=== PATIENT | male | born 1975 | race Caucasian/White ===

== ENCOUNTER → 2017-06-11 | Outpatient (CLI) | payer BC ==
[2017-06-11 07:47] LABS: BASO % 0.8 % (0.0-1.0); EOS # 0.1 10^3/uL (0.0-0.50); EOS % 1.8 % (0.0-3.0); HEMATOCRIT 45.8 % (42.0-52.0); HEMOGLOBIN 16.1 g/dl (13.5-17.5); IMMATURE GRANULOCYTE % 0.2 % (0-3.0); MEAN CORPUSCULAR HEMOGLOBIN 29.8 pg (27.0-33.0); MEAN CORPUSCULAR HGB CONC 35.2 g/dl (32.0-36.5); MEAN CORPUSCULAR VOLUME 84.8 fl (80.0-96.0); MONO # 0.5 10^3/uL (0.0-0.8); MONO % 9.1 % (0.0-5.0); NEUTROPHILS # 2.4 10^3/uL (1.8-7.7); NEUTROPHILS % 48.1 % (36.0-66.0); PLATELET COUNT, AUTOMATED 249 10^3/uL (150-450); RED CELL DISTRIBUTION WIDTH 12.4 % (11.5-14.5)
[2017-06-11 08:27] LABS: ALBUMIN 3.7 GM/DL (3.2-5.2); ALBUMIN/GLOBULIN RATIO 1.09 (1.00-1.93); ALKALINE PHOSPHATASE 83 U/L (45-117); ALT/SGPT 27 U/L (12-78); ANION GAP 8 MEQ/L (8-16); AST/SGOT 18 U/L (7-37); BILIRUBIN,TOTAL 0.5 MG/DL (0.2-1.0); BLOOD UREA NITROGEN 14 MG/DL (7-18); CALCIUM LEVEL 8.4 MG/DL (8.5-10.1); CARBON DIOXIDE LEVEL 25 MEQ/L (21-32); CHLORIDE LEVEL 110 MEQ/L (98-107); CHOLESTEROL LEVEL 174 MG/DL (<200); CHOLESTEROL RISK RATIO 3.551 (<5); CREATININE FOR GFR 0.79 MG/DL (0.70-1.30); GLOMERULAR FILTRATION RATE > 60.0 (>60); GLUCOSE, FASTING 94 MG/DL (70-100); HDL CHOLESTEROL 49 MG/DL (>40); LDL CHOLESTEROL 109.2 MG/DL (<100); NON-HDL-C 125 MG/DL; SODIUM LEVEL 143 MEQ/L (136-145); TOTAL PROTEIN 7.1 GM/DL (6.4-8.2); TRIGLYCERIDES LEVEL 79 MG/DL (<150)
== END ==
LOC: M LAB 06:55
DX: Z00.00 Encounter for general adult medical examination without abnormal findings (principal)

== ENCOUNTER → 2017-06-12 | Outpatient (CLI) | payer BC | LOC: M RAD 06:42 | DX: M54.6 Pain in thoracic spine (principal); Z98.1 Arthrodesis status ==

== ENCOUNTER → 2018-04-26 | Outpatient (CLI) | payer BC ==
--- NOTE | 2018-04-26 18:53 | REP ---
LUMBAR SPINE, SIX VIEWS: HISTORY: Radiculopathy. There is no acute fracture or subluxation. The L4-5 intervertebral disc is decreased in height consistent with disc degeneration. The facet joints are normal in appearance. IMPRESSION:Degenerative change as described above. Electronically Signed by Aram Marquez MD 04/26/2018 06:58 P
== END ==
LOC: M WUC 17:26
PROVIDERS: ATTEND Physician Assistant
DX: M51.36 Other intervertebral disc degeneration, lumbar region (principal); M54.16 Radiculopathy, lumbar region

== ENCOUNTER 2018-06-04 06:40 | Day surgery (SDC) | payer BC ==
[~2018-06-04] VITALS: Ht 193 cm; Wt 93.0 kg
[~2018-06-04 06:40] MED LIST: CYCL10TA PO; PROT1TAB2 PO
[2018-06-04] MEDS ORDERED: SIMETHICONE 40MG/0.6ML DROPS 30ML As Ordered ONE (07:06)
[2018-06-04] MEDS ORDERED: LIDOCAINE 2% INJ 100 MG/5 ML SDV (FOR ANES.) As Ordered ONE (07:07)
[2018-06-04] MEDS ORDERED: PROPOFOL 500 MG/50 ML VIAL As Ordered ONE (07:07)
[2018-06-04] MEDS ORDERED: fentaNYL 100 MCG/2 ML INJECTION (J3010) As Ordered ONE (07:07)
[2018-06-04] MEDS ORDERED: PROPOFOL 200 MG/20 ML VIAL As Ordered ONE (07:07)
--- NOTE | 2018-06-04 07:45 | ROOR ---
Patient Name: Donell Pablo Procedure Date: 06/04/2018 7:31 AM Date of : 1975 Age: 42 Room: [facility] Gender: Male Note Status: Finalized Procedure: Upper GI endoscopy Indications: Heartburn Providers: Efrain MURCIA MD Referring MD: Daina Garcia MD Requesting Provider: Medicines: Monitored Anesthesia Care Complications: No immediate complications. Procedure: Pre-Anesthesia Assessment: - The heart rate, respiratory rate, oxygen saturations, blood pressure, adequacy of pulmonary ventilation, and response to care were monitored throughout the procedure. The Endoscope was introduced through the mouth, and advanced to the second part of duodenum. The upper GI endoscopy was accomplished without difficulty. The patient tolerated the procedure well. Findings: The esophagus was normal. The stomach was normal. The examined duodenum was normal. Impression: - Normal esophagus. - Normal stomach. - Normal examined duodenum. - No specimens collected. Recommendation: - Follow an antireflux regimen. - Continue present medications. Efrain Murcia MD Efrain MURCIA MD 06/04/2018 7:44:41 AM Electronically signed by Efrain MURCIA MD Number of Addenda: 0 Note Initiated On: 06/04/2018 7:31 AM Estimated Blood Loss: Estimated blood loss: none.
[2018-06-04] MEDS ORDERED: NS 1,000 ML IV SCH (08:00)
--- NOTE | 2018-06-04 08:04 | ROOR ---
Patient Name: Donell Pablo Procedure Date: 06/04/2018 7:32 AM Date of : 1975 Age: 42 Room: OP02 Gender: Male Note Status: Finalized Procedure: Colonoscopy Indications: Screening in patient at increased risk: Colorectal cancer in father before age 60 (age 40) Providers: Efrain MURCIA MD Referring MD: Daina Garcia MD Requesting Provider: Medicines: Monitored Anesthesia Care Complications: No immediate complications. Procedure: Pre-Anesthesia Assessment: - The heart rate, respiratory rate, oxygen saturations, blood pressure, adequacy of pulmonary ventilation, and response to care were monitored throughout the procedure. The Colonoscope was introduced through the anus and advanced to the terminal ileum, with identification of the appendiceal orifice and IC valve. The colonoscopy was performed without difficulty. The patient tolerated the procedure well. The quality of the bowel preparation was good. Findings: The perianal and digital rectal examinations were normal. Two sessile polyps were found in the sigmoid colon and appendiceal orifice. The polyps were 4 to 5 mm in size. These polyps were removed with a cold snare. Resection and retrieval were complete. The exam was otherwise without abnormality on direct and retroflexion views. Impression: - Two 4 to 5 mm polyps in the sigmoid colon and at the appendiceal orifice, removed with a cold snare. Resected and retrieved. - The examination was otherwise normal on direct and retroflexion views. Recommendation: - Await pathology results. - Telephone endoscopist for pathology results in 2 weeks. - If the pathology report reveals adenomatous tissue, then repeat the colonoscopy for surveillance in 3 years. - If the pathology report indicates hyperplastic polyp, then repeat colonoscopy for screening purposes in 5 years. Efrain Murcia MD Efrain MURCIA MD 06/04/2018 8:03:40 AM Electronically signed by Efrain MURCIA MD Number of Addenda: 0 Note Initiated On: 06/04/2018 7:32 AM Estimated Blood Loss: Estimated blood loss: none.
[2018-06-04 08:30] VITALS: BP 138/62
== END 2018-06-04 08:34 | disposition home or self-care (01) ==
LOC: M OPP 06:40
PROVIDERS: ATTEND Internal Medicine Gastroenterology
DX: D12.5 Benign neoplasm of sigmoid colon (principal); D12.0 Benign neoplasm of cecum; R19.4 Change in bowel habit; R12 Heartburn; Z87.891 Personal history of nicotine dependence; Z79.899 Other long term (current) drug therapy; Z88.5 Allergy status to narcotic agent
CPT/HCPCS: 43235; 45385; 88305; J3010

== ENCOUNTER → 2019-04-08 | Outpatient (RCR) | payer BC | LOC: M PT 04-06 09:13 | PROVIDERS: ATTEND Orthopaedic Surgery | DX: S83.241D Other tear of medial meniscus, current injury, right knee, subsequent encounter (principal) ==

== ENCOUNTER → 2019-10-07 | Outpatient (CLI) | payer BC ==
[~2019-10-07] MED LIST changes: +CYCL-707 PO; -CYCL10TA PO
== END ==
LOC: M LABSMTC 10:00
PROVIDERS: ATTEND Pediatrics
DX: Z11.59 Encounter for screening for other viral diseases (principal); Z20.828 Contact with and (suspected) exposure to other viral communicable diseases
CPT/HCPCS: C9803; U0002

== ENCOUNTER → 2020-01-16 | Outpatient (CLI) | payer SELFPAY | LOC: M LABSMTC 09:36 | PROVIDERS: ATTEND Pediatrics | DX: Z20.828 Contact with and (suspected) exposure to other viral communicable diseases (principal) ==

== ENCOUNTER → 2020-01-19 | Outpatient (CLI) | payer SELFPAY | LOC: M LABSMTC 09:26 | PROVIDERS: ATTEND Pediatrics | DX: Z20.828 Contact with and (suspected) exposure to other viral communicable diseases (principal) ==

== ENCOUNTER → 2020-01-22 | Outpatient (CLI) | payer SELFPAY | LOC: M LABSMTC 10:15 | PROVIDERS: ATTEND Pediatrics | DX: Z20.828 Contact with and (suspected) exposure to other viral communicable diseases (principal) ==

== ENCOUNTER → 2020-01-25 | Outpatient (CLI) | payer SELFPAY | LOC: M LABSMTC 09:41 | PROVIDERS: ATTEND Pediatrics | DX: Z20.828 Contact with and (suspected) exposure to other viral communicable diseases (principal) ==

== ENCOUNTER → 2020-01-28 | Outpatient (CLI) | payer SELFPAY | LOC: M LABSMTC 09:02 | PROVIDERS: ATTEND Pediatrics | DX: Z20.828 Contact with and (suspected) exposure to other viral communicable diseases (principal) ==

== ENCOUNTER → 2020-05-23 | Outpatient (CLI) | payer BC ==
--- NOTE | 2020-05-23 12:26 | REP ---
INDICATION: ARTHRODESIS STATUS, EVAL PSEUDOARTHROSIS CERVICAL. Patient is status post ventral discectomy and fusion plating C6-7. COMPARISON: Comparison radiographs are from August 16, 2013. Comparison MRI study cervical spine March 21, 2020.. TECHNIQUE: 22.0 mCi of technetium 99 M MDP is injected and standard 3 phase imaging of the head and neck region is acquired. FINDINGS: Anterior and posterior flow study is normal. Delayed images show normal uptake in the cervical spine the vertebral bodies on lateral projection image. There is very slightly asymmetric uptake in the C7-T1 facet joint region on the left greater than the right consistent with osteoarthritic facet disease. Incidental note is made of a tiny focus of increased uptake in the left frontal bone as an incidental finding. There is arthritic uptake in the acromioclavicular joints. Otherwise unremarkable. IMPRESSION: Mild arthritic uptake pattern seen. No abnormal uptake seen in the region of the cervical spine vertebral bodies. <Electronically signed by Jan Franz > 05/23/20 [id number]
== END ==
LOC: M RAD 08:11
PROVIDERS: ATTEND Orthopaedic Surgery
DX: Z98.1 Arthrodesis status (principal)
CPT/HCPCS: 78315; A9503

== ENCOUNTER → 2020-06-01 | Outpatient (CLI) | payer BC ==
--- NOTE | 2020-06-01 23:24 | ECWPNPC ---
PATIENT NAME: PARI HAMILTON : 1975 GENDER: MALE VISIT DATE: 06/01/2020 DISCHARGE DATE: 06/01/20 1049 VISIT LOCKED DATE TIME: PHYSICIAN: ROBB SNYDER MD RESOURCE: ROBB SNYDER MD REASON FOR APPOINTMENT 1. CERVICAL RADICULOPATHE,SPONDYLOSIS,DISC DEGENERATION HISTORY OF PRESENT ILLNESS DEPRESSION SCREENING: PHQ-2 (2015 EDITION) LITTLE INTEREST OR PLEASURE IN DOING THINGS?NOT AT ALL FEELING DOWN, DEPRESSED, OR HOPELESS?NOT AT ALL TOTAL SCORE0 GENERAL: 44-YEAR-OLD MALE PATIENT WITH A HISTORY OF CHRONIC RIGHT NECK PAIN. THE PATIENT DESCRIBES THE PAIN ACHING AND SEVERE WITH A PAIN SCORE RANGING FROM 6-9/10. THE PATIENT HAD A FUSION DONE 6 YEARS AGO AT [facility]. HE WAS DOING RELATIVITY WELL UNTIL ABOUT 6 MONTHS AGO WHEN HE STARTED HAVING SOME INCREASING PAIN. THE PATIENT WAS EVALUATED BY A SPINE SURGEON WHO IS CONSIDERING A SURGERY AND REFERRED THE PATIENT HERE TO DO SOME INTERVENTION. FALL RISK SCREENING: SCREENING : NO FALLS REPORTED IN THE LAST YEAR , : NO FALLS REPORTED IN THE LAST YEAR. PAIN SCREENING: PATIENT HAS A COMPLAINT OF ACUTE OR CHRONIC PAIN :YES LOCATION OF PAIN:NECK, BOTH SHOULDERS INTENSITY OF PAIN (SCALE OF 1 TO 10):6 WHAT DOES YOUR PAIN FEEL LIKE:ACHING, SHOOTING, OTHER PULLING SENSATION WHEN LIFTS DURATION:CONSTANT PAIN IS INCREASED BY:ACTIVITIES, OTHERS LIFTING, TURNING HEAD PAIN IS DECREASED BY:USE OF PAIN MEDICATIONS, OTHERS LYING DOWN NURSING NOTE: - - -. PAIN CENTER INTAKE QUESTIONS: DO YOU HAVE A HISTORY OF MRSA? :NO DO YOU TAKE A BLOOD THINNERS? :NO DO YOU HAVE ANY BLEEDING DISORDERS? :NO ANY NEW NUMBNESS OR WEAKNESS IN YOUR LEGS OR ARMS? :YES NUMBNESS RIGHT ARM SHOULDER TO ELBOW INTERMITTENT FOR PAST 3 MONTHS ANY PACEMAKER,DEFIBRILLATOR, OR DORSAL COLUMN STIMULATOR? :NO DO YOU HAVE ANY RASHES OR OPEN SORES? :NO ARE YOU ALLERGIC TO IV DYE? :NO ARE YOU DIABETIC? :NO ANY NEW PROBLEMS WITH YOUR MEDICATIONS? :NO HAVE YOU RECEIVED A VACCINE IN THE PAST 30 DAYS? :NO DO YOU PLAN TO RECEIVE A VACCINE IN THE NEXT 21 DAYS? :NO DO YOU NEED ANY PRESCRIPTION? :NO DO YOU TAKE ANY IMMUNOSUPPRESSIVE MEDICATIONS? :NO CURRENT MEDICATIONS TAKING GABAPENTIN 300 MG CAPSULE 1 CAPSULE ORALLY 3 TIMES A DAY MEDICATION LIST REVIEWED AND RECONCILED WITH THE PATIENT PAST MEDICAL HISTORY CRUSH INJURY TO NECK 2014 WITH HAIRLINE FRACTURE C6-C7 RIGHT KNEE TORN MENISCUS ALLERGIES MORPHINE IR: ITCHINESS - ALLERGY ENVIRONMENTAL: CONGESTION - ALLERGY SURGICAL HISTORY HERNIATED DISC WITH PLATES AND SCREWS ANTERIOR CERVICAL FUSION C6-C7 07/04/14 APPENDECTOMY 1996 T&A 1981 VASECTOMY 02/08/14 FAMILY HISTORY FATHER: 71 YRS, LUNG CANCER, PROSTATE CANCER, HEART DISEASE MOTHER: ALIVE, HEALTHY 1 BROTHER(S) - HEALTHY. 2 SON(S) , 3 DAUGHTER(S) - HEALTHY. NO KNOWN FAMILY HISTORY OF ANY UROLOGICALLY RELATED DISEASES/CANCERS. SOCIAL HISTORY GENERAL: TOBACCO USE ARE YOU A:: FORMER SMOKER , HOW LONG HAS IT BEEN SINCE YOU LAST SMOKED?: 5-10 YEARS. ALCOHOL SCREENING POINTS: 1, INTERPRETATION: NEGATIVE. RECREATIONAL DRUG USE DENIES. CAFFEINE 12 CUPS/DAY. SEXUAL HX HAD SEX IN THE LAST 12 MONTHS (VAGINAL, ORAL, OR ANAL)?: YES, WITH: WOMEN ONLY, HAVE YOU EVER HAD AN STD?: NO. HINDU NO LUTHERAN BELIEFS THAT WOULD IMPACT HEALTH CARE. LANGUAGE [place]. LEARNING BARRIERS / SPECIAL NEEDS BARRIERS TO LEARNING?NO HEARING IMPAIRED?NO VISION IMPAIRED?YES :CORRECTIVE LENSES COGNITIVELY IMPAIRED?NO READINESS TO LEARN?YES LEARNING PREFERENCES?NO LEARNING CAPABILITIES PRESENT?YES EMOTIONAL BARRIERS?NO SPECIAL DEVICES?NO BUZZSAW OPERATOR NEEDED?NO DOMESTIC VIOLENCE NONE. 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 DIET: REGULAR. EXERCISE: WALKS, BICYCLE. MARITAL STATUS: . HOSPITALIZATION/MAJOR DIAGNOSTIC PROCEDURE SURGICALY RELATED REVIEW OF SYSTEMS GLAUCOMA: NOTHYROID DISEASE: NOHYPERTENSION: NOHEART DISEASE: NOLUNG DISEASE: NODIABETES: NOGI DISEASE: NO LIVER DISEASE: NO KIDNEY DISEASE: NOSTERIOD USE: NONEUROLOGICAL DISEASE: NOBACK PROBLEMS: YES, PAINEXTREMITIES: YES, PAINGENITOURINARY: NOBLEEDING DISORDER: NOASA CLASS: IIAIRWAY CLASS: II. VITAL SIGNS WT 212 LBS, HT 6'3'', BMI 26.50 INDEX, BP 123/84 MM HG, HR 71 /MIN, RR 16 /MIN, TEMP 98.4 F, OXYGEN SAT % 99%, SAFE IN ENV? (Y/N) YES, NA INITIALS 06/01/20 1043 REVIEWED. Mahi DAVIS RN. EXAMINATION GENERAL EXAMINATION: THE PATIENT IS ALERT, ORIENTED TIMES THREE AND COOPERATIVE. LUNGS ARE CLEAR TO AUSCULTATION. HEART SHOWS REGULAR RHYTHM, NO MURMURS AND NO GALLOPS. HE CAN ROTATE HIS HEAD TO THE LEFT SIDE TO ABOUT 50 DEGREES WITHOUT DIFFICULTY. OVER THE RIGHT SIDE, HE HAS PAIN AND DIFFICULTY. WITH EXTENSION OF THE HEAD, TO 60 DEGREE, HE FEELS DISCOMFORT IN THE NECK AND SHOULDER. HE CAN FLEX TO 55 DEGREES WITH TENSION IN THE BACK OF THE NECK. WITH ABDUCTION OF THE UPPER EXTREMITIES AND PUTTING HIS HANDS OVER HIS HEAD, AGAIN PAIN OVER THE RIGHT SHOULDER AND RIGHT NECK AREA. WITH EXTENSION AND LATERAL ROTATION WITH LOADING OVER THE FACET JOINTS, THERE IS TENDERNESS OVER BOTH SIDES. LATERAL TO THE RIGHT ELBOW, THERE IS SOME NUMBNESS. THERE IS SOME DIFFERENCE TO SENSATION OVER RIGHT NECK, RIGHT SHOULDER AND LATERAL TO THE RIGHT ELBOW, FOLLOWING THE DISTRIBUTION OF C4 AND C5. THERE IS TENDERNESS WHEN I PUT PRESSURE OVER THE FACET AT C4-C5, C5-C6. MRI OF THE CERVICAL SPINE DATED 03/21/2020 SHOWS SOME FACET ARTHROPATHY CHANGES, CERVICAL FUSION AT C6-C7, SOME SMALL CENTRAL DISC PROTRUSION AT C5-C6. ASSESSMENTS CERVICAL SPONDYLOSIS - M47.812 (PRIMARY) FACET ARTHROPATHY, CERVICAL - M47.812 CERVICAL VERTEBRAL FUSION - M43.22, C6-C7 CERVICAL POST-LAMINECTOMY SYNDROME - M96.1 CERVICAL RADICULOPATHY - M54.12 TREATMENT CERVICAL SPONDYLOSIS IV LACTATED RINGER'S AT KVO (ORDERED FOR 07/02/2020) OXYGEN AT 2 LITERS PER NASAL CANNULA (ORDERED FOR 07/02/2020) MEDICATION: FENTANYL CITRATE 50MCG IV (ORDERED FOR 07/02/2020) MED: VERSED 1MG IV MIDAZOLAM (ORDERED FOR 07/02/2020) CLINICAL NOTES: I DISCUSSED ALTERNATIVES WITH MR. HAMILTON. WE AGREE ON DOING A RIGHT THERAPEUTIC CERVICAL FACET BLOCK C3-C4, C4-C5, C5-C6, C6-C7 WITH IV SEDATION DUE TO ANXIETY AND DISCOMFORT ASSOCIATED WITH THE PROCEDURE. THE PATIENT REPORTS UNDERSTANDING AND AGREES WITH THE PLAN. I, OLIVIER VILLALOBOS, DOCUMENTED THE ABOVE INFORMATION ACTING A SCRIBE FOR DR. SNYDER. I HAVE REVIEWED THE ABOVE DOCUMENT, WRITTEN BY OLIVIER VILLALOBOS, GLOBAL COMPENSATION MANAGER, AND I VERIFY THAT IT IS ACCURATE. PROCEDURE CODES FA211 ESTABILISHED PATIENT [facility] CHARGE [id number] OFFICE/OUTPATIENT VISIT EST DISPOSITION & COMMUNICATION FOLLOW UP DOES NOT NEED PRESEDATE APPOINTMENT (REASON: REQUEST AUTH FOR RIGHT THERAPEUTIC CERVICAL FACET BLOCK C3-C4, C4-C5, C5-C6, C6-C7 WITH IV SEDATION, DOES NOT NEED PRESEDATE APPOINTMENT ) ELECTRONICALLY SIGNED BY ROBB SNYDER MD, MD ON 06/01/2020 AT 03:36 PM EDT DISCLAIMER : THIS IS A VISIT SUMMARY EXTRACTED FROM THE [facility] CHART. IT IS NOT A COPY OF THE [facility] PROGRESS NOTE. MTDD
== END ==
LOC: M PAIN 10:00
PROVIDERS: ATTEND Anesthesiology
DX: M47.22 Other spondylosis with radiculopathy, cervical region (principal); M96.1 Postlaminectomy syndrome, not elsewhere classified; Z98.1 Arthrodesis status; Z79.899 Other long term (current) drug therapy; Z88.5 Allergy status to narcotic agent

== ENCOUNTER → 2020-06-02 | Outpatient (CLI) | payer BC | LOC: M LABSMTC 09:28 | PROVIDERS: ATTEND Anesthesiology | DX: Z11.52 Encounter for screening for COVID-19 (principal) ==

== ENCOUNTER → 2020-06-07 | Outpatient (CLI) | payer BC ==
[~2020-06-07] MED LIST changes: +BUPIVACAINE HCL 0.25% 30ML VIAL As Ordered ONE; +ISOVUE-M 300 61% 15ML VIAL As Ordered ONE; +LIDOCAINE 1% SDV 30ML VIAL As Ordered ONE; +MIDAZOLAM INJ 2MG/2ML VIAL (J2250 PER 1MG) As Ordered ONE; +TRIAMCINOLONE ACETONIDE SUSP 40 MG/ML VIAL (J3301) As Ordered ONE; +diazePAM 2 MG TAB As Ordered ONE; +diazePAM 5MG TABLET As Ordered ONE; +fentaNYL 100 MCG/2 ML INJECTION (J3010) As Ordered ONE
--- NOTE | 2020-06-07 13:42 | REP ---
INDICATION: RIGHT THERAPEUTIC CERVICAL FACET BLOCK. COMPARISON: X-RAY 08/16/2013. TECHNIQUE: SIX IMAGES FROM C-ARM FLUOROSCOPY PROVIDED TO THE PAIN CLINIC FINDINGS: Lateral views including the C2 as well as the lower cervical spine with a C6-7 plate and screw fixation from prior discectomy and fusion. [place] are at the C4-5 and C5-6 level on these lateral images. IMPRESSION: Status post cervical facet injection. Fluoroscopic time: 65.5 seconds. <Electronically signed by Mustapha Johnson > 06/07/20 4789
--- NOTE | 2020-06-07 23:48 | ECWPNPC ---
PATIENT NAME: PARI HAMILTON : 1975 GENDER: MALE VISIT DATE: 06/07/2020 DISCHARGE DATE: 06/07/20 1409 VISIT LOCKED DATE TIME: PHYSICIAN: ROBB SNYDER MD RESOURCE: ROBB SNYDER MD REASON FOR APPOINTMENT 1. RIGHT THERAPEUTIC CERVICAL FACET BLOCK C4-C5, C5-C6 HISTORY OF PRESENT ILLNESS GENERAL: -. FALL RISK SCREENING: SCREENING : NO FALLS REPORTED IN THE LAST YEAR. PAIN SCREENING: PATIENT HAS A COMPLAINT OF ACUTE OR CHRONIC PAIN :YES LOCATION OF PAIN:NECK, LEFT SHOULDER, RIGHT SHOULDER INTENSITY OF PAIN (SCALE OF 1 TO 10):8 WHAT DOES YOUR PAIN FEEL LIKE:ACHING, CONTINOUS, THROBBING DURATION:CONTINOUS PAIN IS INCREASED BY:ACTIVITIES, OTHERS HEAVY LIFTING PAIN IS DECREASED BY:USE OF PAIN MEDICATIONS, OTHERS GABAPENTIN, HEAT NURSING NOTE: -. PAIN CENTER INTAKE QUESTIONS: DO YOU HAVE A HISTORY OF MRSA? :NO DO YOU TAKE A BLOOD THINNERS? :NO DO YOU HAVE ANY BLEEDING DISORDERS? :NO ANY NEW NUMBNESS OR WEAKNESS IN YOUR LEGS OR ARMS? :YES NUMBNESS RADIATING DOWN RIGHT ARM ANY PACEMAKER,DEFIBRILLATOR, OR DORSAL COLUMN STIMULATOR? :NO DO YOU HAVE ANY RASHES OR OPEN SORES? :NO ARE YOU ALLERGIC TO IV DYE? :NO ARE YOU DIABETIC? :NO ANY NEW PROBLEMS WITH YOUR MEDICATIONS? :NO HAVE YOU RECEIVED A VACCINE IN THE PAST 30 DAYS? :NO 2ND DOSE COVID VACCINE 04/02/2020 DO YOU PLAN TO RECEIVE A VACCINE IN THE NEXT 21 DAYS? :NO DO YOU TAKE ANY IMMUNOSUPPRESSIVE MEDICATIONS? :NO ANY HISTORY OF SEIZURES? :NO ANY HISTORY OF CARDIAC ISSUES OR EVENTS? :NO DO YOU HAVE ANY KIDNEY OR LIVER DISEASE? :NO DO YOU HAVE SLEEP APNEA? :NO ANY RECENT HEAD INJURY? :NO DO YOU HAVE ANY NEW INFECTIONS? :NO IS THERE A CHANCE YOU COULD BE ? :NO ARE YOU BREAST FEEDING? :NO WHEN DID YOU LAST EAT? : 06/06/20 1800 WHEN DID YOU LAST DRINK? : 0930 WHAT DID YOU LAST DRINK? : BLACK COFFEE NAME OF PERSON DRIVING YOU HOME? : DYANA DO YOU HAVE ANY OTHER QUESTIONS OR CONCERNS? : NO CURRENT MEDICATIONS TAKING GABAPENTIN 300 MG CAPSULE 1 CAPSULE ORALLY 3 TIMES A DAY, NOTES: 06/06/20 TAKING OMEPRAZOLE 20 MG CAPSULE DELAYED RELEASE 1 CAPSULE 30 MINUTES BEFORE MORNING MEAL ORALLY ONCE A DAY TAKING ZYRTEC ALLERGY 10 MG TABLET 1 TABLET ORALLY ONCE A DAY, NOTES: PRN MEDICATION LIST REVIEWED AND RECONCILED WITH THE PATIENT PAST MEDICAL HISTORY CRUSH INJURY TO NECK 2014 WITH HAIRLINE FRACTURE C6-C7 RIGHT KNEE TORN MENISCUS ALLERGIES MORPHINE IR: ITCHINESS - ALLERGY ENVIRONMENTAL: CONGESTION - ALLERGY SOCIAL HISTORY GENERAL: TOBACCO USE ARE YOU A:: FORMER SMOKER , HOW LONG HAS IT BEEN SINCE YOU LAST SMOKED?: 5-10 YEARS. LATEX QUESTIONNAIRE LATEX ALLERGY : HAVE YOU EVER DEVELOPED ANY TYPE OF REACTION AFTER HANDLING LATEX PRODUCTS SUCH RUBBER GLOVES, CONDOMS, DIAPHRAGMS, BALLOONS, SOCKS, OR UNDERWEAR?NO LATEX ALLERGY : HAVE YOU EVER DEVELOPED ANY TYPE OF REACTION DURING OR AFTER DENTAL APPOINTMENT, VAGINAL/RECTAL EXAMINATION, SURGICAL PROCEDURE, OR ANY OTHER EXPOSURE?NO LATEX RISK : HAVE YOU EVER HAD ANY DIFFICULTY BREATHING OR HIVES AFTER EATING OR HANDLING ANY FRUITS, OR VEGETABLES; SUCH KIWI, BANANAS, STONE FRUITS, OR CHESTNUTSNO LATEX RISK : DO YOU HAVE A PREVIOUS PERSONAL HISTORY OF MORE THAN NINE SURGERIES, SPINA BIFIDA, OR REPEATED CATHERIZATIONS? NO LATEX RISK : ARE YOU FREQUENTLY EXPOSED TO LATEX PRODUCTS IN YOUR OCCUPATION?YES DATE ASKED : 06/06/2020 ALCOHOL USE: YES- SOCIALLY. ALCOHOL SCREENING POINTS: 1, INTERPRETATION: NEGATIVE. RECREATIONAL DRUG USE DENIES. CAFFEINE 12 CUPS/DAY. SEXUAL HX HAD SEX IN THE LAST 12 MONTHS (VAGINAL, ORAL, OR ANAL)?: YES, WITH: WOMEN ONLY, HAVE YOU EVER HAD AN STD?: NO. ADVENTISM NO PENTECOSTAL BELIEFS THAT WOULD IMPACT HEALTH CARE. LANGUAGE YI. LEARNING BARRIERS / SPECIAL NEEDS BARRIERS TO LEARNING?NO HEARING IMPAIRED?NO VISION IMPAIRED?YES COGNITIVELY IMPAIRED?NO :CORRECTIVE LENSES READINESS TO LEARN?YES LEARNING PREFERENCES?NO LEARNING CAPABILITIES PRESENT?YES EMOTIONAL BARRIERS?NO SPECIAL DEVICES?NO INSTRUMENT TECH NEEDED?NO DOMESTIC VIOLENCE DO YOU FEEL SAFE IN YOUR ENVIRONMENT?YES OCCUPATION: [employer]. DIET: REGULAR. EXERCISE: WALKS, BICYCLE. MARITAL STATUS: . VITAL SIGNS WT 215.6 LBS, HT 6'3'', BMI 26.95 INDEX, BP 137/81 MM HG, HR 66 /MIN, RR 18 /MIN, TEMP 97.5 F, OXYGEN SAT % 97%, SAFE IN ENV? (Y/N) YES, NA INITIALS AW 1131, REVIEWED BY: Jose LAM RN. EXAMINATION GENERAL EXAMINATION: A HISTORY AND PHYSICAL EXAM ON THE PATIENT WAS DONE ON 06/01/2020 (DATE OF ORIGINAL ASSESSMENT) IN PREPARATION OF SURGERY/PROCEDURE. I HAVE NOW REASSESSED THIS PATIENT'S HEALTH STATUS AND PERFORMED AN UPDATED EXAM TODAY. ALL CHANGES IN THE PATIENT'S HISTORY, PHYSICAL EXAM, PRE-EXISTING CONDITONS, AND INDICATIONS/CONTRAINDICATIONS TO THE PLANNED PROCEDURE AND ANESTHESIA ARE DOCUMENTED AND EVALUATED BELOW. I ATTEST TO THE ADEQUACY AND APPROPRIATENESS OF MY ASSESSMENT, AND CONFIRM THE NECESSITY FOR THE PLANNED PROCEDURE. THE PATIENT IS ALERT, ORIENTED TIMES THREE AND COOPERATIVE. LUNGS ARE CLEAR TO AUSCULTATION. HEART SHOWS REGULAR RHYTHM, NO MURMURS AND NO GALLOPS. ASSESSMENTS CERVICAL SPONDYLOSIS - M47.812 (PRIMARY) TREATMENT CERVICAL SPONDYLOSIS SMC FACET BLOCK (PAIN)[id number] MEDICATION: VALIUM TAB 2MG ORALLY (DIAZEPAM)YUSEF LARA 06/07/2020 11:34:04 AM > VERIFIED SETH LAM 06/07/2020 11:35:05 AM > ADMINISTERED. OLIVIER VILLALOBOS 06/07/2020 11:57:02 AM - SECOND DOSE ORDERED, VERIFIED WITH AGUSTIN COLBERT 06/07/2020 12:03:40 PM > VERIFIED SETH LAM 06/07/2020 12:05:10 PM > ADMINISTERED. MEDICATION: VALIUM TAB 5MG ORALLY (DIAZEPAM)AGUSTIN BERNAL 06/07/2020 12:06:20 PM > VERIFIED SETH LAM 06/07/2020 12:06:51 PM > ADMINISTERED. COMPLETION OF PROCEDURAL VISIT WHEN MEETS CRITERIASETH LAM 06/07/2020 2:08:31 PM > CRITERIA MET. MED: VERSED 1MG IV MIDAZOLAMSETH LAM 06/07/2020 12:39:24 PM > VERIFIED. AGUSTIN BERNAL 06/07/2020 1:42:12 PM > FIRST DOSE GIVEN AT 1253, SECOND DOSE GIVEN AT 1257, THIRD DOSE GIVEN AT 1300. TOTAL GIVEN 3MG SETH LAM 06/07/2020 3:23:51 PM > VERBAL MEDICATION ORDERS PERFORMED DUE TO SCRIBE NOT BEING IN THE ROOM DURING THE PROCEDURE. THIS PROCEDURE WAS REVIEWED BY SETH LAM ON 06/07/2020 AT 15:23 PM EDT MEDICATION: FENTANYL CITRATE 50MCG IV SETH LAM 06/07/2020 12:39:41 PM > VERIFIED. AGUSTIN BERNAL 06/07/2020 1:42:55 PM > FIRST DOSE GIVEN AT 1311, SECOND DOSE GIVEN AT 1313, THIRD DOSE GIVEN AT 1315. TOTAL GIVEN 150MCG SETH LAM 06/07/2020 3:23:30 PM > VERBAL MEDICATION ORDERS PERFORMED DUE TO SCRIBE NOT BEING IN THE ROOM DURING THE PROCEDURE. THIS PROCEDURE WAS REVIEWED BY SETH LAM ON 06/07/2020 AT 15:23 PM EDT OXYGEN AT 2 LITERS PER NASAL CANNULASETH LAM 06/07/2020 12:42:00 PM > O2 ON AT 1241. SETH LAM 06/07/2020 1:24:31 PM > O2 OFF AT 1324. IV LACTATED RINGER'S AT KVSETH OLVERA 06/07/2020 11:53:18 AM > 22 GAUGE INSERTED IN LEFT HAND ON 1ST ATTEMPT. SITE CLEAR, FLUSHING WITHOUT DIFFICULTY. LR STARTED AT KVO PER ORDER. SETH LAM 06/07/2020 1:32:48 PM > TOTAL LR INFUSED 350 ML. SETH LAM 06/07/2020 1:55:44 PM > SL REMOVED, CATHERTER TIP INTACT, SITE CLEAR. OTHERS NOTES: 06/06/2020 1527 PRE PROCEDURE PHONE CALL COMPLETED WITH PATIENT Aneudy PATINO RN. PROCEDURES PAIN NURSING RECORD PROCEDURE IN ROOM 1240, PHYSICIAN IN ROOM 1249, START 1317, FINISH 1322, PHYSICIAN OUT OF ROOM 1324, OUT OF ROOM 1333, ECG NORMAL SINUS, PATIENT SHIELDED YES, SAFETY STRAP YES, PREP CHLOROPREP DR. SNYDER, DRESSING TEGADERM DR. SNYDER LOC: SETH LAM 06/07/2020 1:18:07 PM > , 1. ALERT, ORIENTED RESP: SETH LAM 06/07/2020 1:18:10 PM > , 1. REGULAR, NO DYSPNEA COLOR: SETH LAM 06/07/2020 1:18:13 PM > , 1. PINK SKIN: SETH LAM 06/07/2020 1:18:17 PM > , 1. WARM, DRY POSITION: SETH LAM 06/07/2020 1:18:21 PM > , 3. LATERAL VITALS: SETH LAM 06/07/2020 12:46:15 PM > 115/55, 62, 18, 98% SYLSETH TOBIN L 06/07/2020 12:57:00 PM > 123/55, 64, 18, 100% SYLSETH TOBIN L 06/07/2020 1:02:51 PM > 120/58, 67, 16, 100% SYLVER,SETH L 06/07/2020 1:06:54 PM > 117/59, 67, 16, 100% SYLVER,SETH L 06/07/2020 1:11:54 PM > 116/59, 65, 16, 100% SYLSETH TOBIN L 06/07/2020 1:16:48 PM > 114/61, 63, 16, 99% SYLSETH TOBIN L 06/07/2020 1:22:00 PM > 122/60, 60, 16, 97% SYLSETH TOBIN L 06/07/2020 1:23:12 PM > 116/65, 58, 18, 97% SYLSETH TOBIN L 06/07/2020 1:43:17 PM > 132/73, 57, 18, 97% NOTES SETH LAM 06/07/2020 2:15:07 PM > CARDIAC STRIP NOT PRINTED. PATIENT REMAINED SINUS RHYTHM THROUGHOUT PROCEDURE. COMPLETION OF PROCEDURE APPOINTMENT: POST PAIN 4, DRESSING SITE DRY AND INTACT, IV DISCONTINUED, SITE CLEAR, CATHETER INTACT, GAIT STEADY, TEACHING COMPLETED, PATIENT ACKNOWLEDGES UNDERSTANDING YES, PROCEDURE APPOINTMENT COMPLETED AT 1408 BY: Jose LAM RN PN CERVICAL FACET BLOCK LOW BILATERAL CERVICAL PRE PROCEDURE DIAGNOSIS CERVICAL SPONDYLOSIS POST PROCEDURE DIAGNOSIS CERVICAL SPONDYLOSIS PROCEDURE RIGHT C4-C5 AND RIGHT C5-C6 THERAPEUTIC CERVICAL FACET BLOCK SURGEON DR. ROBB SNYDER BOBBIN WINDER TENDER NONE ANESTHESIA LOCAL WITH IV SEDATION PRE PROCEDURE NOTE THE PATIENT HAS HISTORY OF CHRONIC CERVICAL PAIN. I EVALUATED THE PATIENT AND REVIEWED THE CHART. I WENT OVER THE RISKS, ALTERNATIVES, AND BENEFITS ASSOCIATED WITH THIS PROCEDURE. THE PATIENT WOULD LIKE TO PROCEED AND GIVE CONSENT TO PERFORMED THE PROCEDURE. THE PATIENT WOULD LIKE TO MOVE FORWARD WITH IV SEDATION DUE TO ANXIETY AND DISCOMFORT ASSOCIATED WITH THE PROCEDURE. THE PATIENT DENIES UNEXPLAINABLE WEIGHT LOSS, FEVER, CHILLS, OR NEW CHANGES IN URINARY OR BOWEL CONTROL. THE PATIENT IS COVID-19 NEGATIVE DESCRIPTION OF PROCEDURE THE PATIENT WAS BROUGHT TO THE PROCEDURE ROOM AND PLACED IN THE LEFT LATERAL DECUBITUS POSITION. THE CERVICOTHORACIC AREA WAS CLEANED WITH CHLORAPREP SOLUTION AND DRAPED ASEPTICALLY. THE PROCEDURE WAS DONE UNDER STERILE CONDITIONS. A TIMEOUT WAS PERFORMED WHERE THE CONSENTED SITE WAS VERIFIED WITH EVERYONE IN THE ROOM. UNDER FLUOROSCOPIC GUIDANCE, TARGET POINT WAS SELECTED AT THE RIGHT C4-C5 AND RIGHT C5-C6 CERVICAL FACET JOINT. TARGET POINTS WERE SELECTED AFTER LATERAL ROTATION AND TILT OF THE MAGNIFIER OF THE C-ARM. I CONFIRMED AGAIN THE SITE OF TARGET. LIDOCAINE 0.5% WAS USED TO NUMB THE SKIN AND THE SUBCUTANEOUS TISSUE BELOW IT. SPINAL NEEDLES, 22-GAUGE, WERE ADVANCED UNDER FLUOROSCOPIC GUIDANCE AND FOLLOWING PATIENT FEEDBACK UNTIL THE TARGETS WERE TOUCHED. THE POSITION OF THE NEEDLES WAS VERIFIED WITH AP AND LATERAL VIEWS. AFTER PROPER POSITION OF THE NEEDLES WAS ACHIEVED, ISOVUE-M DYE 30%, 0.1 ML, WAS INJECTED SHOWING SPREAD OF THE DYE. KENALOG 10 MG WAS INJECTED AT EACH SITE. THEN A SOLUTION OF 6 ML OF BUPIVACAINE 0.125% WAS USED TO FLUSH EACH SITE. THE MEDICATIONS WERE VERIFIED WITH THE NURSE. THERE WAS NO EVIDENCE OF BLOOD, PARESTHESIA OR CEREBROSPINAL FLUID DURING THE PROCEDURE. THE PATIENT WAS SENT TO THE RECOVERY ROOM. THE PATIENT WAS MOVING THE EXTREMITIES AND DOING WELL. THERE WERE NO COMPLICATIONS DURING THE PROCEDURE. ESTIMATED BLOOD LOSS WAS LESS THAN 5 ML. FLUOROSCOPY TIME WAS 1 MINUTE 5 SECONDS. THE PATIENT RECEIVED VERSED 3 MG AND FENTANYL 150 MCG IV IN DIVIDED DOSES. FACE TO FACE START TIME: 1253 FACE TO FACE END TIME: 1324 TOTAL FACE TO FACE TIME: 31 MINUTES POST PROCEDURE NOTE THE PATIENT WILL BE SEEN IN A FOLLOW UP IN THE NEXT FEW WEEKS. I AM LOOKING FOR LONG LASTING RELIEF FOR THE PATIENT WITH THIS INTERVENTION. INSTRUCTIONS WERE GIVEN, QUESTIONS WERE ANSWERED, AND THE PATIENT EXPRESSED UNDERSTANDING AND AGREES WITH THE PLAN. I, OLIVIER VILLALOBOS, DOCUMENTED THE ABOVE INFORMATION ACTING A SCRIBE FOR DR. SNYDER. I HAVE REVIEWED THE ABOVE DOCUMENT, WRITTEN BY OLIVIER VILLALOBOS, WAREHOUSE HELPER, AND I VERIFY THAT IT IS ACCURATE PROCEDURE CODES 47881 INJ PARAVERT F JNT C/T 1 LEV, MODIFIERS: [place] [address] INJ PARAVERT F JNT C/T 2 LEV, [place]: [place] [address] MOD SED SAME PHYS/QHP 5/>YRS 27310 MOD SED SAME PHYS/QHP EA DISPOSITION & COMMUNICATION FOLLOW UP FOLLOW UP WITH STEEL PLATE PRINTER (REASON: POST RIGHT THERAPEUTIC CERVICAL FACET BLOCK C4-C5, C5-C6) ELECTRONICALLY SIGNED BY ROBB SNYDER MD, MD ON 06/07/2020 AT 03:21 PM EDT DISCLAIMER : THIS IS A VISIT SUMMARY EXTRACTED FROM THE [facility] CHART. IT IS NOT A COPY OF THE [facility] PROGRESS NOTE. MTDD
== END ==
LOC: M PAIN 12:30
PROVIDERS: ATTEND Anesthesiology
DX: M47.812 Spondylosis without myelopathy or radiculopathy, cervical region (principal); Z87.891 Personal history of nicotine dependence; Z88.5 Allergy status to narcotic agent; Z79.899 Other long term (current) drug therapy
CPT/HCPCS: 64490; 64491; 99152; 99153; J2250; J3010; J3301; Q9967

== ENCOUNTER → 2020-06-21 | Outpatient (REF) | payer BC ==
[~2020-06-21] MED LIST changes: -BUPIVACAINE HCL 0.25% 30ML VIAL As Ordered ONE; -ISOVUE-M 300 61% 15ML VIAL As Ordered ONE; -LIDOCAINE 1% SDV 30ML VIAL As Ordered ONE; -MIDAZOLAM INJ 2MG/2ML VIAL (J2250 PER 1MG) As Ordered ONE; -TRIAMCINOLONE ACETONIDE SUSP 40 MG/ML VIAL (J3301) As Ordered ONE; -diazePAM 2 MG TAB As Ordered ONE; -diazePAM 5MG TABLET As Ordered ONE; -fentaNYL 100 MCG/2 ML INJECTION (J3010) As Ordered ONE
== END ==
LOC: M LAB REF 11:54
PROVIDERS: ATTEND Physician Assistant
DX: J02.9 Acute pharyngitis, unspecified (principal); R50.9 Fever, unspecified

== ENCOUNTER → 2020-07-30 | Outpatient (CLI) | payer BC ==
--- NOTE | 2020-07-30 08:36 | REPVR ---
PROCEDURE INFORMATION: Exam: CT Cervical Spine Without Contrast Exam date and time: 07/30/2020 8:05 AM Age: 44 years old Clinical indication: Radicular pain (radiculopathy); Cervical region; Prior surgery; Surgery date: 6+ months; Additional info: Radiculopathy, cervical region TECHNIQUE: Imaging protocol: Computed tomography images of the cervical spine without contrast. Radiation optimization: All CT scans at this facility use at least one of these dose optimization techniques: automated exposure control; mA and/or kV adjustment per patient size (includes targeted exams where dose is matched to clinical indication); or iterative reconstruction. COMPARISON: MRI C-SPINE W/O CONTRAST - OUTSIDE PRIOR 03/21/2020 8:10 AM FINDINGS: Bones/joints: Straightening of lordosis may be positional or related to muscular spasm, and unchanged from prior examination. Correlate clinically. No acute fracture. There is anterior plate and screw fusion with unilateral right paramedian screws. There is lucency surrounding the C6 screw which could indicate loosening. Hardware appears intact. There is no fusion across the disc space. There is disc height loss. Again seen is stable [id number] right neural foraminal narrowing. There is posterior mild disc osteophyte complex without evidence of significant spinal stenosis. Other levels show no spinal stenosis or neural foraminal narrowing or significant disc osteophyte complex. Discs/Spinal canal/Neural foramina: See "Bones/joints" finding. Lungs: Small apical subpleural blebs noted with mild apical pleuroparenchymal scarring. Soft tissues: Unremarkable. IMPRESSION: C6-C7 fusion with lucency surrounding the right paramedian C6 screw. Stable degenerative changes C6-C7. Electronically signed by: Daina Metcalf On 07/30/2020 08:36:16 AM
== END ==
LOC: M RAD 07:45
PROVIDERS: ATTEND Orthopaedic Surgery
DX: M43.22 Fusion of spine, cervical region (principal); M54.12 Radiculopathy, cervical region

== ENCOUNTER → 2020-10-11 | Outpatient (CLI) | payer BC ==
--- NOTE | 2020-10-11 13:30 | REP ---
INDICATION: RT SCROTAL MASS. COMPARISON: None. TECHNIQUE: Multiple ultrasonographic images of the scrotum including Doppler ultrasound FINDINGS: The right testis measures 5.4 x 2.6 x 3.1 cm. The left testis measures 4.9 x 2.8 x 3.3 cm. The testes are normal size. There are no testicular masses or cysts. A few microcalcifications are identified in both right and left testes. Therefore, periodic test testicular ultrasound surveillance might be considered to evaluate for neoplasm. The right epididymal head measures 9.0 mm and left epididymal head measures 8.4 mm. The palpable lump on the right corresponds to the right epididymal head. There is a right inguinal hernia containing peritoneal fat but no bowel. This hernia is almost completely reducible with transducer pressure. There is vascular flow in both testes. The Doppler resistive index in the parenchymal arteries of the right testis is 0.59 left testis 0.62. IMPRESSION: There are no testicular masses or scrotal masses otherwise. The the palpable lump on the right corresponds to the right epididymal head. There is a right inguinal hernia containing peritoneal fat but no bowel. The hernia is almost completely reducible with transducer pressure. There are few microcalcifications in each testis, therefore, periodic testicular ultrasound surveillance might be considered <Electronically signed by Juve Knight > 10/11/20 [id number]
== END ==
LOC: M RAD 12:35
PROVIDERS: ATTEND Urology
DX: N50.9 Disorder of male genital organs, unspecified (principal); K40.90 Unilateral inguinal hernia, without obstruction or gangrene, not specified as recurrent

== ENCOUNTER → 2020-11-01 | Outpatient (CLI) | payer BC ==
[~2020-11-01] MED LIST changes: +CETI10CA2 PO; +GABA-283; +OMEP20.6 PO
== END ==
LOC: M LABSMTC 09:43
PROVIDERS: ATTEND Anesthesiology
DX: Z01.812 Encounter for preprocedural laboratory examination (principal); Z11.52 Encounter for screening for COVID-19

== ENCOUNTER 2020-11-06 06:06 | Day surgery (SDC) | payer BC ==
[~2020-11-06] VITALS: Ht 190.5 cm; Wt 98.9 kg
[~2020-11-06 06:06] MED LIST changes: +LIDOCAINE 1% MDV 20ML VIAL SQ PRN; +LR 1,000 ML IV ONE
[2020-11-06] MEDS ORDERED: MIDAZOLAM INJ 2MG/2ML VIAL (J2250 PER 1MG) As Ordered ONE (07:07)
[2020-11-06] MEDS ORDERED: propofoL 200 MG/20 ML VIAL As Ordered ONE ×2 (07:08→08:36)
[2020-11-06] MEDS ORDERED: ROCURONIUM BROMIDE 50 MG/5 ML VIAL As Ordered ONE ×2 (07:11→08:15)
[2020-11-06] MEDS ORDERED: fentaNYL 100 MCG/2 ML INJECTION (J3010) As Ordered ONE ×2 (07:13→09:43)
[2020-11-06] MEDS ORDERED: LIDOCAINE 2% 100MG/5ML SDV (FOR ANES.) As Ordered ONE (07:13)
[2020-11-06] MEDS ORDERED: BUPIVACAINE HCL 0.25% 30ML VIAL As Ordered ONE (07:13)
[2020-11-06] MEDS ORDERED: dexameTHASONE 4 MG/ML 1ML VIAL (J1100 PER 1MG) As Ordered ONE (07:44)
[2020-11-06] MEDS ORDERED: METOCLOPRAMIDE INJ 10MG/2ML VIAL (J2765 PER 1) As Ordered ONE (07:44)
[2020-11-06] MEDS ORDERED: ACETAMINOPHEN 1000MG 100ML IV BTL (OFIRMEV) (J0131 PER 10MG) As Ordered ONE (07:52)
[2020-11-06] MEDS ORDERED: HYDROmorphone HCL 2 MG/ML 1ML VIAL (J1170) As Ordered ONE (08:07)
[2020-11-06] MEDS ORDERED: GLYCOPYRROLATE INJ 0.2 MG/ML 2 ML VIAL As Ordered ONE (08:10)
[2020-11-06] MEDS ORDERED: KETOROLAC 60MG 2ML VIAL As Ordered ONE (08:34)
[2020-11-06] MEDS ORDERED: ONDANSETRON 4MG/2ML VIAL As Ordered ONE ×2 (08:34→09:44)
[2020-11-06] MEDS ORDERED: SUGAMMADEX SODIUM 500 MG/5 ML VIAL (BRIDION) As Ordered ONE (08:34)
[2020-11-06] MEDS ORDERED: SEVOFLURANE INHAL SOLN 250 ML BTL As Ordered ONE (08:37)
[2020-11-06] MEDS ORDERED: HYDR-3715 PO (09:40)
[2020-11-06] MEDS ORDERED: HYDROMORPHONE HCL 0.5 MG/ 0.5 ML SYRINGE (J1170 PER 1) IV PRN (09:50)
[2020-11-06] MEDS ORDERED: LR 1,000 ML IV SCH (09:50)
[2020-11-06] MEDS ORDERED: ONDANSETRON 4MG/2ML VIAL IV PRN (09:50)
[2020-11-06] MEDS: fentaNYL 100 MCG/2 ML INJECTION (J3010) IV PRN ×4 (09:54→10:28)
[2020-11-06] MEDS ORDERED: IBUPROFEN 600MG TAB PO PRN (09:55)
[2020-11-06] MEDS ORDERED: ACETAMINOPHEN TAB 650MG DOSE (2X325MG) PO PRN (09:55)
[2020-11-06] MEDS ORDERED: NORCO, ANEXSIA 5/325MG TABLET (HYDROcodone/ACETAMINOPHEN) PO PRN (09:55)
[2020-11-06] MEDS: oxyCODONE 5MG TAB PO PRN ×2 (10:09→10:35)
[2020-11-06 11:20] VITALS: BP 132/65
--- NOTE | 2020-11-07 09:39 | RO ---
OPERATIVE NOTE DATE OF OPERATION: 11/06/2020 PREOPERATIVE DIAGNOSIS: Right inguinal hernia. POSTOPERATIVE DIAGNOSIS: Right inguinal hernia with right lower quadrant adhesions. PROCEDURE PERFORMED: Robotic-assisted laparoscopic right inguinal herniorrhaphy with mesh with lysis of adhesions. SURGEON: Devonte Bangura MD PATIENT'S LIBRARIAN: Valentine Garcia. Valentine was required for assistance with management of the da Sera surgical robot including the insertion of trocars, change of instruments, passage of sutures and mesh, and suture of the incisions. ANESTHESIA: General. INDICATIONS FOR THE PROCEDURE: The patient is a 45-year-old man with a roughly month-long history of a painful bulge intermittently in the right lower abdomen. Examination confirmed a reducible right inguinal hernia and he is now for repair. OPERATIVE PROCEDURE: The patient was brought to the operating room and placed on the table in a supine position. He was placed under general endotracheal anesthesia. The patient's abdomen had been clipped of hair in the holding area. The abdomen was prepped and draped in a sterile fashion to including the groins and genitalia. 0.25% Marcaine was infiltrated at the trocar sites as needed. The initial incision was along the midline approximately 4-5 cm above the umbilicus. A short transverse incision was made and a Veress needle was inserted. After a positive hanging drop test, the abdomen was inflated with carbon dioxide gas. An 8-mm robotic port was placed over the scope and advanced through the abdominal wall without difficulty. Initial examination showed no evidence of Veress needle or trocar injury. The liver appeared normal. Visualized portions of the small and large bowel appeared normal. There were some adhesions in the patient's right lower quadrant of the cecum and ascending colon to the anterior abdominal wall and lateral abdominal wall partially obscuring the area of his hernia. A second 8-mm port was placed in the right upper quadrant and a third in the left upper quadrant. The patient was tilted to an approximately 15 degree Trendelenburg position. The patient cart of the da Sera Xi robot was brought into position and the endoscope arm was docked to the middle port. The camera was inserted and targeting took place just to the right of the midline in the pelvis. The additional arms were then docked and a fenestrated bipolar and cauterizing scissors were inserted in the remaining arms. I then moved to the control console to proceed with the surgery. Initially, the adhesions in the right lower quadrant were lysed using a combination of cautery and sharp dissection to free the bowel and allow this to fall away from the area of the hernia. He was noted to have a hernia sac, which appeared to have a large amount of fat in the wall. There was no evidence of hernia on the left side. A preperitoneal flap was created by incising the peritoneum beginning at the lateral border of the medial umbilical ligament and extending laterally, and then inferiorly toward the anterosuperior iliac spine. The flap was developed with a combination of sharp and cautery dissection with excellent hemostasis. The inferior epigastric vessels were identified and preserved. Medially, the dissection was carried down to the Eulalio's ligament. The area of the femoral canal was identified and there was no femoral hernia. The dissection was then carried further laterally. The hernia sac and herniation consisted primarily of a large amount of preperitoneal fat which extended down along the spermatic cord. The preperitoneal fat was reduced back into the abdomen. A portion of this was excised for later removal. The hernia defect itself was fairly small and did not appear to require any closure. A Covidien ProGrip prosthetic patch was selected. This was reference code [id number] and lot number [id number]. Valentine Garcia trimmed the corners of the mesh and inserted this into the abdomen. I placed this into the preperitoneal space with the adherent side facing the abdominal wall. The mesh was centered over the hernia and unfolded, and nicely fit within the preperitoneal space. The adherent side was pressed gently into the overlying soft tissues. Positioning appeared excellent. The peritoneal flap was then closed with a running absorbable 2-0 V-Loc. This was started laterally. As the closure of the peritoneum continued, the patient was gradually returned to a flat position and the pressure within the abdomen was reduced to 8 mmHg. The closure of the peritoneum was completed. The needle was removed. The small portion of preperitoneal fat was also removed but was discarded and was not sent as a specimen. Final inspection revealed an excellent closure with no evidence of any bleeding. The robot was undocked and withdrawn, and the abdomen was deflated and the trocars were removed. Valentine Garcia proceeded to close the three trocar sites with buried Vicryl sutures and Steri-Strips. Light dressings were applied. The patient tolerated the procedure well without apparent complication. The patient was awakened in the operating room, extubated, and moved to the recovery room in stable condition.
== END 2020-11-06 11:50 | disposition home or self-care (01) ==
LOC: M SDC 06:06
PROVIDERS: ATTEND Surgery
DX: K40.90 Unilateral inguinal hernia, without obstruction or gangrene, not specified as recurrent (principal); K66.0 Peritoneal adhesions (postprocedural) (postinfection); K21.9 Gastro-esophageal reflux disease without esophagitis; Z88.5 Allergy status to narcotic agent; Z79.899 Other long term (current) drug therapy
CPT/HCPCS: 49650; C1781; J0131; J1100; J1170; J1885; J2250; J2405; J2765; J3010; S2900

== ENCOUNTER → 2020-11-26 | Outpatient (CLI) | payer BC ==
[~2020-11-26] MED LIST changes: +HYDR-3715 PO; -LIDOCAINE 1% MDV 20ML VIAL SQ PRN; -LR 1,000 ML IV ONE
== END ==
LOC: M LABSMTC 09:10
PROVIDERS: ATTEND Orthopaedic Surgery
DX: Z01.812 Encounter for preprocedural laboratory examination (principal); M47.22 Other spondylosis with radiculopathy, cervical region

== ENCOUNTER → 2020-12-27 | Outpatient (CLI) | payer BC ==
[2020-12-27 14:43] LABS: HEMATOCRIT 49.6 % (42.0-52.0); MEAN CORPUSCULAR HEMOGLOBIN 30.2 pg (27.0-33.0); MEAN CORPUSCULAR HGB CONC 34.3 g/dl (32.0-36.5); MEAN CORPUSCULAR VOLUME 88.3 fl (80.0-96.0); PLATELET COUNT, AUTOMATED 243 10^3/uL (150-450); RED BLOOD COUNT 5.62 10^6/uL (4.30-6.10); WHITE BLOOD COUNT 6.2 10^3/uL (4.0-10.0)
[2020-12-27 14:54] LABS: INR 0.99; PROTHROMBIN TIME 13.5 SECONDS (12.7-14.5)
[2020-12-27 15:10] LABS: ERYTHROCYTE SEDIMENTATION RATE 2 mm/hr (0-15)
[2020-12-27 15:18] LABS: ALT/SGPT 29 U/L (12-78); BILIRUBIN,TOTAL 0.5 MG/DL (0.2-1.0); BLOOD UREA NITROGEN 13 MG/DL (7-18); CALCIUM LEVEL 9.2 MG/DL (8.5-10.1); CARBON DIOXIDE LEVEL 28 MEQ/L (21-32); CHLORIDE LEVEL 110 MEQ/L (98-107); CREATININE FOR GFR 0.92 MG/DL (0.70-1.30); GLOMERULAR FILTRATION RATE > 60.0 (>60); GLUCOSE, FASTING 89 MG/DL (70-100); POTASSIUM SERUM 3.9 MEQ/L (3.5-5.1); SODIUM LEVEL 142 MEQ/L (136-145); TOTAL PROTEIN 7.6 GM/DL (6.4-8.2)
--- NOTE | 2020-12-28 09:48 | ECGEPIP ---
[facility] Test Date: 2020-12-27 Pat Name: PARI HAMILTON Department: Room: - Gender: Male Sprayer Hand: FIONA : 1975 Requested By: Titi Tejada Order Number: [id number] Reading MD: Jefferson Ho Measurements Intervals [place] Rate: 65 P: 37 CO: 196 QRS: 35 QRSD: 96 T: 39 QT: 404 QTc: 420 Interpretive Statements Sinus rhythm with premature atrial complexes Normal EKG Comparison tracing not on file Electronically Signed on 12-28-2020 9:48:21 EDT by Jefferson Ho
== END ==
LOC: M LAB 13:22
PROVIDERS: ATTEND Orthopaedic Surgery
DX: Z01.818 Encounter for other preprocedural examination (principal); M47.22 Other spondylosis with radiculopathy, cervical region

== ENCOUNTER → 2021-07-20 | Outpatient (REF) | payer BC ==
[~2021-07-20] MED LIST changes: -GABA-283; +GABA-283 PO; +OMEP40CA5 PO
[2021-07-20 13:04] LABS: RSV AMPLIFICATION NEGATIVE (NEGATIVE)
== END ==
LOC: M LABSMTC 10:50
PROVIDERS: ATTEND Pediatrics
DX: Z20.822 Contact with and (suspected) exposure to COVID-19 (principal)

== ENCOUNTER → 2021-07-22 | Outpatient (CLI) | payer BC | LOC: M LABSMTC 09:49 | PROVIDERS: ATTEND Anesthesiology | DX: Z11.52 Encounter for screening for COVID-19 (principal); Z20.822 Contact with and (suspected) exposure to COVID-19 ==

== ENCOUNTER 2021-07-26 06:44 | Day surgery (SDC) | payer BC ==
[~2021-07-26] VITALS: Ht 193 cm; Wt 93.0 kg
[~2021-07-26 06:44] MED LIST changes: +NS 1,000 ML IV ONE
[2021-07-26] MEDS ORDERED: propofoL 200 MG/20 ML VIAL As Ordered ONE ×2 (07:17→07:51)
[2021-07-26] MEDS ORDERED: LIDOCAINE 2% 100MG/5ML SDV (FOR ANES.) As Ordered ONE (07:17)
[2021-07-26] MEDS ORDERED: SIMETHICONE 40MG/0.6ML DROPS 30ML As Ordered ONE (07:24)
[2021-07-26 08:16] VITALS: BP 118/92
== END 2021-07-26 08:17 | disposition home or self-care (01) ==
LOC: M OPP 06:44
PROVIDERS: ATTEND Internal Medicine Gastroenterology
DX: Z12.11 Encounter for screening for malignant neoplasm of colon (principal); Z86.010 Personal history of colon polyps; Z80.0 Family history of malignant neoplasm of digestive organs; D12.0 Benign neoplasm of cecum; K57.30 Diverticulosis of large intestine without perforation or abscess without bleeding; Z79.899 Other long term (current) drug therapy; Z88.5 Allergy status to narcotic agent; Z80.42 Family history of malignant neoplasm of prostate; Z80.1 Family history of malignant neoplasm of trachea, bronchus and lung

== ENCOUNTER → 2023-06-18 | Outpatient (CLI) | payer BC ==
[~2023-06-18] MED LIST changes: -GABA-283 PO; +GABA-284 PO; -NS 1,000 ML IV ONE
[2023-06-18 16:58] LABS: PLATELET COUNT, AUTOMATED 243 10^3/uL (150-450)
[2023-06-18 17:17] LABS: INR 1.03; PARTIAL THROMBOPLASTIN TIME 28.9 SECONDS (24.8-34.2); PROTHROMBIN TIME 13.2 SECONDS (12.5-14.5)
== END ==
LOC: M PLALAB 15:53
PROVIDERS: ATTEND Physician Assistant
DX: Z01.818 Encounter for other preprocedural examination (principal)

== ENCOUNTER → 2024-12-13 | Outpatient (CLI) | payer OTHER ==
[2024-12-13 08:26] LABS: PLATELET COUNT, AUTOMATED 231 10^3/uL (150-450)
[2024-12-13 08:29] LABS: APPEARANCE, URINE CLEAR (CLEAR); BACTERIA, URINE AUTO NEGATIVE (NEGATIVE); BILIRUBIN, URINE AUTO NEGATIVE (NEGATIVE); BLOOD, URINE BLOOD NEGATIVE (NEGATIVE); GLUCOSE, URINE (UA) AUTO NEGATIVE (NEGATIVE); KETONE, URINE AUTO NEGATIVE (NEGATIVE); LEUKOCYTE ESTERASE, URINE AUTO NEGATIVE (NEGATIVE); MUCUS, URINE SMALL (NEGATIVE); NITRITE, URINE AUTO NEGATIVE (NEGATIVE); PROTEIN, URINE AUTO NEGATIVE (NEGATIVE); RBC, URINE AUTO 0 /HPF (0-3); SPECIFIC GRAVITY URINE AUTO 1.030 (1.002-1.035); SQUAMOUS EPITHELIAL CELL UR AU 0 /HPF (0-6); UROBILINOGEN, URINE AUTO 0.2 mg/dL (0.0-2.0); WBC, URINE AUTO 2 /HPF (0-3)
[2024-12-13 08:54] LABS: FREE T4 1.33 NG/DL (0.89-1.76); VITAMIN B12 LEVEL 358 PG/ML (211-911)
[2024-12-13 09:03] LABS: ALT/SGPT 21 U/L (7.0-40); AST/SGOT 23 U/L (<34); CALCIUM LEVEL 8.8 MG/DL (8.5-10.1); CARBON DIOXIDE LEVEL 25 MMOL/L (20-31); CHLORIDE LEVEL 106 MMOL/L (98-107); CHOLESTEROL LEVEL 192 MG/DL (<200); CHOLESTEROL RISK RATIO 3.45 (<5); CREATININE FOR GFR 0.89 MG/DL (0.70-1.30); GLOMERULAR FILTRATION RATE > 90.0 (>60); LDL CHOLESTEROL 116.0 MG/DL (<100); NON-HDL-C 136.4 MG/DL; POTASSIUM SERUM 3.7 MMOL/L (3.5-5.1); SODIUM LEVEL 143 MMOL/L (136-145); TRIGLYCERIDES LEVEL 102 MG/DL (<150)
[2024-12-13 10:00] LABS: ESTIMATED AVERAGE GLUCOSE 105.0 MG/DL (60-110)
== END ==
LOC: M LAB 07:26
PROVIDERS: ATTEND Physician Assistant
DX: R06.83 Snoring (principal); K21.9 Gastro-esophageal reflux disease without esophagitis; Z80.42 Family history of malignant neoplasm of prostate